=== PATIENT | female | born 1980 | race African-American/Black ===

== ENCOUNTER 2016-10-04 12:19 | Emergency (ER) | payer OTHER ==
[2016-10-04] MEDS ORDERED: Azithromycin TAB* 250 MG PO ONE (20:43)
[2016-10-04] MEDS ORDERED: Raltegravir* 400 MG TAB PO ONE ×2 (20:43→23:00)
[2016-10-04] MEDS ORDERED: Ibuprofen TAB* 600 MG PO ONE (20:43)
[2016-10-04] MEDS ORDERED: Tetan/Diph/Pertus SYR(Tdap)* 0.5 ML SYR(BOOSTRIX) use SYR IM ONE (20:43)
[2016-10-04] MEDS ORDERED: cefTRIAXone VIAL(*) 250 MG VIAL IM ONE (20:43)
[2016-10-04] MEDS ORDERED: Tenofovir/Emtricitabine(*) TAB PO ONE ×2 (20:43→23:00)
[2016-10-04] MEDS ORDERED: Hepatitis B Vaccine (ADULT)* 2 X 0.5 ML VIALS IM ONE (20:46)
[2016-10-04 21:03] LABS: Hematocrit 36 % (35-47); Hemoglobin 10.8 g/dl (12.0-16.0); Mean Corpuscular HGB Conc 31 g/dl (31-36); Mean Corpuscular Hemoglobin 21 pg (27-31); Mean Corpuscular Volume 69 fL (80-97); Mean Platelet Volume 9 um3 (7.4-10.4); Red Blood Count 5.18 10^6/ul (4.0-5.4); Red Cell Distribution Width 15 % (10.5-15); White Blood Count 5.7 10^3/ul (3.5-10.8)
[2016-10-04 21:04] LABS: Add Diff/Slide Review? Slide Review Added; Comments Flag Yes
[2016-10-04 21:06] LABS: Urine Bilirubin Negative (Negative); Urine Glucose Negative (Negative); Urine Nitrite Negative (Negative)
[2016-10-04 21:18] LABS: Albumin 3.9 g/dL (3.2-5.2); Calcium 9.2 mg/dL (8.6-10.3); EGFR African American 72.6 (>60); EGFR Non-African American 56.5 (>60); Globulin 3.3 g/dL (2-4); Total Bilirubin 0.4 mg/dL (0.2-1.0); Total Protein 7.2 g/dL (6.4-8.9)
[2016-10-04] MEDS ORDERED: Norgestrel/Ethinyl Estrad TAB* 0.5 MG/0.05 MG PO ONE (21:31)
[2016-10-04 21:45] LABS: UR Preg Internal Control QC Line Present
[2016-10-04 21:57] LABS: Microcytosis 2+
[2016-10-04] MEDS ORDERED: Ondansetron ODT TAB* 4 MG PO ONE (21:58)
[2016-10-04 22:00] LABS: Rapid HIV INT CONT QC Line Present; Rapid HIV Kit Lot# F209005
[2016-10-04] MEDS ORDERED: Lidocaine 1% INJ* 10 MG/ML 30 ML SDV ONE (22:30)
[2016-10-04 23:37] VITALS: BP 150/92
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
== END 2016-10-04 23:35 | disposition home or self-care (01) ==
LOC: ED 12:19
DX: T76.21XA Adult sexual abuse, suspected, initial encounter (principal)
CPT/HCPCS: 36415; 80053; 81003; 81025; 85025; 86703; 86706; 86803; 87340; 90471; 90715; 96372; 99284; A9270-GY; J0696; J2001

== ENCOUNTER 2017-01-27 09:30 | Emergency (ER) | payer BC ==
[2017-01-27 09:39] VITALS: BP 138/79
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
== END 2017-01-27 10:27 | disposition home or self-care (01) ==
LOC: UCEAST 09:30
DX: H66.91 Otitis media, unspecified, right ear (principal); J02.9 Acute pharyngitis, unspecified; F17.210 Nicotine dependence, cigarettes, uncomplicated
CPT/HCPCS: 87651; 99212; G0463

== ENCOUNTER 2017-03-09 10:30 | Emergency (ER) | payer BC, MEDICAID ==
[2017-03-09 10:49] VITALS: BP 142/99
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
== END 2017-03-09 11:47 | disposition home or self-care (01) ==
LOC: UCEAST 10:30
DX: T65.91XA Toxic effect of unspecified substance, accidental (unintentional), initial encounter (principal); T20.47XA Corrosion of unspecified degree of neck, initial encounter; T32.0 Corrosions involving less than 10% of body surface; Y92.9 Unspecified place or not applicable; F17.210 Nicotine dependence, cigarettes, uncomplicated; Z88.0 Allergy status to penicillin
CPT/HCPCS: 99212; G0463

== ENCOUNTER 2017-03-28 12:52 | Emergency (ER) | payer MEDICAID ==
--- NOTE | 2017-03-28 14:39 | UC ---
Skin Complaint HPI - HPI Summary HPI Summary: Patient presents to be checked out because her sister has bed bugs and she was over there. She report to bite almonte to her skin. She also report an infected hang nail of the right thumb. She states it is painful, and has been bleeding. - History of Current Complaint Chief Complaint: UCSkin Time Seen by Provider: 03/28/17 14:26 Stated Complaint: PERSONAL Hx Obtained From: Patient Hx Last Menstrual Period: 03/21/17 ?: No Onset/Duration: Gradual Onset, Lasting Days Skin Exposure Onset/Duration: Days Ago Onset Severity: Moderate Current Severity: Moderate - Allergy/Home Medications Allergies/Adverse Reactions: Allergies Allergy/AdvReac Type Severity Reaction Status Date / Time Penicillins [PCN] Allergy Unknown Unknown Verified 03/28/17 13:15 Reaction Details Review of Systems Constitutional: Negative Skin: Negative - right thumb pain and bleeding of the right lateral and proximal nail., Other Eyes: Negative ENT: Negative Respiratory: Negative Cardiovascular: Negative Gastrointestinal: Negative Genitourinary: Negative Musculoskeletal: Negative All Other Systems Reviewed And Are Negative: Yes PMH/Surg Hx/FS Hx/Imm Hx Previously Healthy: Yes - Surgical History Surgical History: None - Family History Known Family History: Positive: None, Cardiac Disease, Respiratory Disease Family History: R & n/C - Social History Occupation: Unemployed Lives: Alone Alcohol Use: None Substance Use Type: None Substance Use Comment - Amount & Last Used: in past, but states not currently Smoking Status (MU): Heavy Every Day Tobacco Smoker Type: Cigarettes Amount Used/How Often: 1/2 ppd Length of Time of Smoking/Using Tobacco: since age 23 Have You Smoked in the Last Year: Yes Household Exposure Type: Cigarettes Physical Exam Triage Information Reviewed: Yes Appearance: Well-Appearing Vital Signs: Initial Vital Signs Temp 98 F 03/28/17 13:15 Pulse 89 03/28/17 13:15 Resp 18 03/28/17 13:15 Pulse Ox 100 03/28/17 13:15 Vital Signs Reviewed: Yes Eye Exam: Normal ENT Exam: Normal Neck exam: Normal Respiratory Exam: Normal Cardiovascular Exam: Normal Abdominal Exam: Normal Musculoskeletal Exam: Normal Psychological Exam: Normal Skin Exam: Other - right thumb has skin missing of the lateral and proximal nail , no active bleeding, no flucuance. Course/Dx - Course Course Of Treatment: Patient presents because her sister has bed bugs and she was over there, I see no evidence of any insect bites today.I did recommend she clean and bomb the apartment. She also has an infected hang nail and we cleaned and dressed it here. She was given an RX for Keflex 500 mg by mouth four times daily x 10 days. Told to follow up with pcp in two days. - Differential Diagnoses - Skin Complaint Differential Diagnoses: Cellulitis, Other - infected hang nail - Diagnoses Provider Diagnoses: infected hand nail. cellulitis Discharge - Discharge Plan Condition: Stable Disposition: HOME Prescriptions: Cephalexin CAP* [Keflex CAP*] 500 mg PO QID #40 cap Patient Education Materials: Cellulitis (ED) Referrals: No Primary Care Phys,NOPCP [Primary Care Provider] -
== END 2017-03-28 14:48 | disposition home or self-care (01) ==
LOC: UCEAST 12:52
DX: L03.011 Cellulitis of right finger (principal)
CPT/HCPCS: 99212; G0463

== ENCOUNTER 2017-07-05 15:54 | Emergency (ER) | payer MEDICAID ==
[2017-07-05 16:02] VITALS: BP 137/85
[2017-07-05] MEDS ORDERED: NS 0.9% 1000 ML* 2,000 ML IV ONE (16:47)
--- NOTE | 2017-07-05 16:54 | UC ---
General HPI - HPI Summary HPI Summary: 37yo BF c/o sx dizziness while at work today after drinking "alot of alcohol for her birthday" over new years for at least 2 days and feels lightheaded, dehydrated and tired. Pt's boss at [employer] noticed while at work that pt was "unsteady on her feet" and sent her home. Pt has been trying to drink alot of water to recover but feels like she is still trying to catch up. Denies f/c and but has a mild cough. - History of Current Complaint Chief Complaint: UCHeadache Stated Complaint: DIZZINESS Time Seen by Provider: 07/05/17 16:38 Hx Obtained From: Patient Hx From Patient Unobtainable Due To: Other Hx Last Menstrual Period: 06/03/17 Onset/Duration: Sudden Onset Onset Severity: Severe Current Severity: Moderate - Allergy/Home Medications Allergies/Adverse Reactions: Allergies Allergy/AdvReac Type Severity Reaction Status Date / Time Penicillins [PCN] Allergy Unknown Unknown Verified 07/05/17 16:02 Reaction Details Home Medications: Home Medications NK [No Home Medications Reported] 07/05/17 [History Confirmed 07/05/17] PMH/Surg Hx/FS Hx/Imm Hx Previously Healthy: Yes - Surgical History Surgical History: None - Family History Known Family History: Positive: None, Cardiac Disease, Respiratory Disease Family History: R & n/C - Social History Alcohol Use: None Substance Use Type: Marijuana Substance Use Comment - Amount & Last Used: in past, but states not currently Smoking Status (MU): Heavy Every Day Tobacco Smoker Type: Cigarettes Amount Used/How Often: 1/2 ppd Length of Time of Smoking/Using Tobacco: since age 23 Have You Smoked in the Last Year: Yes Household Exposure Type: Cigarettes Review of Systems Constitutional: Fatigue - from binge drinking Skin: Negative Eyes: Negative ENT: Negative Respiratory: Negative Cardiovascular: Negative Gastrointestinal: Negative Genitourinary: Negative Motor: Negative Neurovascular: Other - intermittent HANSEN and dizziness, NO LOC Musculoskeletal: Negative Neurological: Headache Psychological: Negative All Other Systems Reviewed And Are Negative: Yes Physical Exam Triage Information Reviewed: Yes Appearance: No Pain Distress Vital Signs: Initial Vital Signs Temp 36.8 C 07/05/17 15:58 Pulse 97 07/05/17 15:58 Resp 20 07/05/17 15:58 BP 137/85 07/05/17 15:58 Pulse Ox 100 07/05/17 15:58 Eye Exam: Normal ENT Exam: Other - DRY mucous menbranes andchapped lips Dental Exam: Normal Neck exam: Normal Neck: Positive: 1 Respiratory Exam: Normal Respiratory: Positive: Lungs clear Cardiovascular: Positive: Tachycardia - pulse is 97 Abdominal Exam: Normal Abdomen Description: Positive: Nontender Musculoskeletal Exam: Normal Neurological Exam: Normal Psychological Exam: Normal Skin Exam: Normal Course/Dx - Course Course Of Treatment: Ordered 2L of NS and administered 1L of NS for post ETOH binge drinking dehydration becuse pt refused 2nd bag of IVF due to pt requesting to go home for family emergency/. Advised to continue PO hydration after d/c as it sita help with dizziness and HANSEN. No signs of neurologic deficiencies noted pre and post IVF adminsitration. - Differential Dx - Multi-Symptom Provider Diagnoses: Dehydration Discharge - Discharge Plan Condition: Stable Disposition: HOME Referrals: No Primary Care Phys,NOPCP [Primary Care Provider] -
[2017-07-05] MEDS ORDERED: NS 0.9% 1000 ML* 1,000 ML IV ONE (17:37)
== END 2017-07-05 18:29 | disposition home or self-care (01) ==
LOC: UCEAST 15:54
DX: E86.0 Dehydration (principal); F17.210 Nicotine dependence, cigarettes, uncomplicated; Z88.0 Allergy status to penicillin
CPT/HCPCS: 96360; 99211; G0463

== ENCOUNTER 2018-01-02 20:25 | Emergency (ER) | payer BC, MEDICAID ==
[2018-01-02 20:39] VITALS: BP 131/87
[2018-01-02] MEDS ORDERED: Clindamycin CAP* 150 MG PO ONE ×2 (21:05→21:07)
[2018-01-02] MEDS ORDERED: HYDROcodone/ACETAMIN 5-325 MG* 1 TAB PO ONE ×2 (21:06→21:07)
--- NOTE | 2018-01-02 21:54 | UC ---
Pam Sal Emily, scribed for Ezio Dumont MD on 01/02/18 at 2103 . Dental HPI - HPI Summary HPI Summary: This patient is a 37 year old F presenting to [facility] care with a chief complaint of upper left toothache that began 12/26/2017. The patient rates the pain 7/10 in severity. Symptoms aggravated by nothing. Symptoms alleviated by nothing. Patient reports cough, sore throat, vomiting, near syncope, and dizziness. Patient denies CP and hematochezia. Patient reports she has been working more than usual lately. Allergies reviewed. Medications reviewed. - History of Current Complaint Chief Complaint: UCDentalProblem Stated Complaint: TOOTH ACHE Time Seen by Provider: 01/02/18 20:55 Hx Obtained From: Patient Hx Last Menstrual Period: [id number] ?: No Onset/Duration: Sudden Onset, Lasting Weeks, Still Present Severity: Moderate Pain Intensity: 7 Pain Scale Used: 0-10 Numeric Aggravating Factor(s): Nothing Alleviating Factor(s): Nothing - Allergies/Home Medications Allergies/Adverse Reactions: Allergies Allergy/AdvReac Type Severity Reaction Status Date / Time Penicillins Allergy Unknown Verified 01/02/18 20:40 Reaction Details Home Medications: Home Medications Ibuprofen TAB* [Motrin TAB* 800 MG] 800 mg PO Q6H PRN 01/02/18 [History Confirmed 01/02/18] PMH/Surg Hx/FS Hx/Imm Hx Previously Healthy: No Respiratory History: Asthma Neurological History: Seizures - Surgical History Surgical History: None - Family History Known Family History: Positive: Cardiac Disease, Respiratory Disease - Social History Occupation: Employed Full-time Lives: With Family Alcohol Use: Weekly Substance Use Type: Marijuana Substance Use Comment - Amount & Last Used: weekly Smoking Status (MU): Light Every Day Tobacco Smoker Type: Cigarettes Amount Used/How Often: 1/2 ppd Length of Time of Smoking/Using Tobacco: since age 23 Have You Smoked in the Last Year: Yes Household Exposure Type: Cigarettes Review of Systems ENT: Dental Pain, Sore Throat Respiratory: Cough Cardiovascular: Other - Negative CP Gastrointestinal: Vomiting, Other - Negative hematochezia Neurological: Other - Positive near syncope and dizziness All Other Systems Reviewed And Are Negative: Yes Physical Exam - Summary Physical Exam Summary: General: well-appearing, no pain distress Skin: warm, color reflects adequate perfusion, dry Head: normal Eyes: EOMI, EMANUEL ENT: normal Dental: Left upper molar severe decay with surrounding gingival swelling Neck: supple, nontender Respiratory: CTA, breath sounds present Cardiovascular: RRR Abdomen: soft, nontender Bowel: present Musculoskeletal: normal, strength/ROM intact Neurological: sensory/motor intact, A&O x3 Psychological: affect/mood appropriate Triage Information Reviewed: Yes Vital Signs: Initial Vital Signs Temp 99.0 F 01/02/18 20:28 Pulse 88 01/02/18 20:28 Resp 16 01/02/18 20:28 BP 131/87 01/02/18 20:28 Pulse Ox 100 01/02/18 20:28 Vital Signs Reviewed: Yes Dental Complaint Course/Dx - Course Course Of Treatment: PATIENT REPORTS SHE BELIEVES HER NEAR SYNCOPE/DIZZINESS IS DUE TO WORKING A LOT AND HER DENTAL INFECTION. DENIES CHEST PAIN/SOB. I DISCUSSED FURTHER WORKUP TO INCLUDE AN EKG AND LAB WORK; THE PATIENT DECLINED FURTHER WORKUP. F/U PMD/DENTIST; RE CHECK SOONER IF WORSE. - Differential Dx/Diagnosis Provider Diagnoses: DENTAL INFECTION. NEAR SYNCOPE. DIZZINESS Discharge - Sign-Out/Discharge Documenting (check all that apply): Discharge/Admit/Transfer - Discharge Plan Condition: Stable Disposition: HOME Prescriptions: Clindamycin Cap(NF) [Clindamycin Cap 300 mg Cap(NF)] 300 mg PO Q6H #38 cap HYDROcodone/ACETAMIN 5-325 MG* [[place] 5-325 TAB*] 1 tab PO Q4H PRN #20 tab MDD 6 PRN Reason: Pain Patient Education Materials: Near Syncope (ED), Dizziness (ED), Toothache (ED) Forms: *Work Release Referrals: [facility] [place] PHYSICIAN REFERRAL [Outside] Additional Instructions: FOLLOW UP WITH YOUR DENTIST AND PRIMARY CARE DOCTOR. GET RECHECKED FOR ANY WORSENING OF YOUR CONDITION; CHEST PAIN, PALPITATIONS, SHORTNESS OF BREATH, FEVER, YOU FEEL ILL OR QUESTIONS OR CONCERNS. - Billing Disposition and Condition Condition: STABLE Disposition: Home The documentation as recorded by the Pam mcleod Emily accurately reflects the service I personally performed and the decisions made by me, Ezoi Dumont MD.
== END 2018-01-02 21:28 | disposition home or self-care (01) ==
LOC: UCEAST 20:25
DX: K04.7 Periapical abscess without sinus (principal); R42 Dizziness and giddiness; R55 Syncope and collapse; Z88.0 Allergy status to penicillin; F17.210 Nicotine dependence, cigarettes, uncomplicated; J45.909 Unspecified asthma, uncomplicated; Z86.69 Personal history of other diseases of the nervous system and sense organs
CPT/HCPCS: 99213; A9270-GY; G0463

== ENCOUNTER 2018-10-28 16:07 | Emergency (ER) | payer SELFPAY ==
[2018-10-28 16:16] VITALS: BP 132/93
--- NOTE | 2018-10-28 16:28 | UC ---
FLU HPI - HPI Summary HPI Summary: patient reports feeling well yesterday until after lunch when she suddenly started feeling fatigued, achey and had fever. today symps persist - History of Current Complaint Chief Complaint: UCGeneralIllness Stated Complaint: DIZZY,FEVER Time Seen by Provider: 10/28/18 16:18 Hx Obtained From: Patient Hx Last Menstrual Period: states 2 weeks ago, unknown date ?: No Onset/Duration: Sudden Onset Severity Initially: Moderate Pain Intensity: 4 - Allergy/Home Medications Allergies/Adverse Reactions: Allergies Allergy/AdvReac Type Severity Reaction Status Date / Time Penicillins Allergy Unknown Verified 10/28/18 16:17 Reaction Details Home Medications: Home Medications Buprenorp/Nalox 8-2 MG FILM [Suboxone 8 mg-2 mg Sl Film] 1 each SL TID 10/28/18 [History Confirmed 10/28/18] Gabapentin 300 mg PO TID 10/28/18 [History Confirmed 10/28/18] PMH/Surg Hx/FS Hx/Imm Hx Previously Healthy: Yes - Surgical History Surgical History: None - Family History Known Family History: Positive: None, Cardiac Disease, Respiratory Disease Family History: R & n/C - Social History Occupation: Employed Full-time Lives: With Family Alcohol Use: Occasionally Substance Use Type: Cocaine Substance Use Comment - Amount & Last Used: occasional Smoking Status (MU): Light Every Day Tobacco Smoker Type: Cigarettes Amount Used/How Often: 1 pk/3 days Length of Time of Smoking/Using Tobacco: since age 23 Have You Smoked in the Last Year: Yes Household Exposure Type: Cigarettes Cessation Counseling: Patient Advised to Stop Review of Systems All Other Systems Reviewed And Are Negative: Yes Constitutional: Positive: Fever, Fatigue Skin: Positive: Negative. Negative: Rash ENT: Negative: Sore Throat, Sinus Congestion Respiratory: Positive: Negative. Negative: Cough Cardiovascular: Positive: Negative Neurological: Positive: Negative Psychological: Positive: Negative Is Patient Immunocompromised?: No Physical Exam Triage Information Reviewed: Yes Appearance: Well-Appearing, No Pain Distress, Well-Nourished Vital Signs: Initial Vital Signs Temp 97.8 F 10/28/18 16:12 Pulse 88 10/28/18 16:12 Resp 16 10/28/18 16:12 BP 132/93 10/28/18 16:12 Pulse Ox 99 10/28/18 16:12 Vital Signs Reviewed: Yes Eyes: Positive: Conjunctiva Clear ENT: Positive: Pharynx normal, TMs normal. Negative: Sinus tenderness Neck: Positive: Supple, No Lymphadenopathy Respiratory Exam: Normal Respiratory: Positive: Lungs clear Cardiovascular Exam: Normal Cardiovascular: Positive: RRR Musculoskeletal Exam: Normal Musculoskeletal: Positive: Strength Intact Neurological Exam: Normal Neurological: Positive: Alert Psychological Exam: Normal Skin Exam: Normal Skin: Negative: Rashes Flu Course/Dx - Differential Dx/Diagnosis Differential Diagnosis/HQI/PQRI: Upper Respiratory Infection Provider Diagnosis: Upper respiratory infection Discharge - Sign-Out/Discharge Documenting (check all that apply): Patient Departure All imaging exams completed and their final reports reviewed: No Studies - Discharge Plan Condition: Good Disposition: HOME Patient Education Materials: Upper Respiratory Infection (ED) Referrals: No Primary Care Phys,NOPCP [Primary Care Provider] - Additional Instructions: drink plenty of fluids and rest use over the counter Tylenol as directed for pain and fever report to ER if your symptoms worsen at any time - Billing Disposition and Condition Condition: GOOD Disposition: Home
[2018-10-28 16:47] LABS: Influenza A Molecular NEGATIVE (Negative); Influenza B Molecular NEGATIVE (Negative)
== END 2018-10-28 17:00 | disposition home or self-care (01) ==
LOC: UCEAST 16:07
DX: J06.9 Acute upper respiratory infection, unspecified (principal); Z88.0 Allergy status to penicillin; F17.210 Nicotine dependence, cigarettes, uncomplicated
CPT/HCPCS: 99211; G0463

== ENCOUNTER 2019-01-17 19:39 | Emergency (ER) | payer OTHER ==
[2019-01-17] MEDS ORDERED: Tetracaine 0.5% OPTH.SOL 4 ML* 1 DROP BTL SCH (20:30)
--- NOTE | 2019-01-17 20:56 | ED ---
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 Denies actual bleach in eyes. Denies any other pain injury or symptoms. Denies contact lenses. - History of Current Complaint Chief Complaint: EDEyeProblem Time Seen by Provider: 01/17/19 20:16 Hx Obtained From: Patient Onset/Duration: Gradual Onset, Lasting Hours Severity: Moderate Associated Signs And Symptoms: Positive: Negative Cough: None - Allergies/Home Medications Allergies/Adverse Reactions: Allergies Allergy/AdvReac Type Severity Reaction Status Date / Time Penicillins Allergy Unknown Verified 01/17/19 19:47 Reaction Details PMH/Surg Hx/FS Hx/Imm Hx Endocrine/Hematology History: Denies: Hx Diabetes, Hx Thyroid Disease Cardiovascular History: Denies: Hx Hypertension Respiratory History: Reports: Hx Asthma Denies: Hx Chronic Obstructive Pulmonary Disease (COPD) GI History: Denies: Hx Ulcer History: Denies: Hx Dialysis Sensory History: Denies: Hx Eye Prosthesis Opthamlomology History: Denies: Hx Legally Blind Neurological History: Denies: Hx Dementia Infectious Disease History: No Infectious Disease History: Denies: Hx Clostridium Difficile, Hx Hepatitis, Hx Human Immunodeficiency Virus (HIV), Hx of Known/Suspected MRSA, Hx Shingles, Hx Tuberculosis, Hx Known/ Suspected VRE, Hx Known/Suspected VRSA, History Other Infectious Disease, Traveled Outside the [place] in Last 30 Days - Family History Known Family History: Positive: None, Cardiac Disease, Respiratory Disease Family History: R & n/C - Social History Alcohol Use: Occasionally Hx Substance Use: Yes Substance Use Type: Reports: None Substance Use Comment - Amount & Last Used: occasional Hx Tobacco Use: Yes Smoking Status (MU): Light Every Day Tobacco Smoker Type: Cigarettes Amount Used/How Often: 1 pk/3 days Length of Time of Smoking/Using Tobacco: since age 23 Have You Smoked in the Last Year: Yes Review of Systems Constitutional: Negative Positive: Blurred Vision ENT: Negative Cardiovascular: Negative - data the Respiratory: Negative Gastrointestinal: Negative Genitourinary: Negative Musculoskeletal: Negative Skin: Negative Neurological: Negative Psychological: Normal All Other Systems Reviewed And Are Negative: Yes Physical Exam - Summary Physical Exam Summary: EOMI. PERRLA. No obvious signs of injury to eyes. Triage Information Reviewed: Yes Vital Signs On Initial Exam: Initial Vitals Temp Pulse Resp BP Pulse Ox 97.8 F 75 16 114/86 99 01/17/19 19:41 01/17/19 19:41 01/17/19 19:41 01/17/19 19:41 01/17/19 19:41 Vital Signs Reviewed: Yes Appearance: Positive: Well-Appearing Skin: Positive: Warm Head/Face: Positive: Normal Head/Face Inspection Eyes: Positive: Normal ENT: Positive: Normal ENT inspection Neck: Positive: Supple Respiratory/Lung Sounds: Positive: Clear to Auscultation Cardiovascular: Positive: Normal Abdomen Description: Positive: Nontender Musculoskeletal: Positive: Normal Neurological: Positive: Normal Psychiatric: Positive: Normal AVPU Assessment: Alert - [place] Coma Scale Best Eye Response: 4 - Spontaneous Best Motor Response: 6 - Obeys Commands Best Verbal Response: 5 - Oriented Coma Scale Total: 15 Diagnostics - Vital Signs Vital Signs Temp Pulse Resp BP Pulse Ox 01/17/19 19:41 97.8 F 75 16 114/86 99 - Laboratory Lab Statement: Any lab studies that have been ordered have been reviewed, and results considered in the medical decision making process. 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 Denies actual bleach in eyes. Denies any other pain injury or symptoms. Denies contact lenses. Vital signs within normal limits. Bilateral eyes flushed with 100ml normal saline. Patient refused to continue having eyes flushed. Patient states vision has returned to normal. Return for any new or worsening symptoms. Advised patient follow-up with ophthalmology Dr. Swanson. Patient understands and approves of plan. - Diagnoses Provider Diagnoses: Accidental exposure to bleach Discharge - Sign-Out/Discharge Documenting (check all that apply): Patient Departure Patient Received Moderate/Deep Sedation with Procedure: No - Discharge Plan Condition: Stable Disposition: HOME Patient Education Materials: Eye Pain (ED) Referrals: No Primary Care Phys,NOPCP [Primary Care Provider] - Martín Swanson MD [Medical Doctor] - Additional Instructions: If you experience any vision change or eye pain follow-up with ophthalmology Dr. Swanson or return to the ED or for further evaluation. - Billing Disposition and Condition Condition: STABLE Disposition: Home
[2019-01-17 21:13] VITALS: BP 127/89
== END 2019-01-17 21:12 | disposition home or self-care (01) ==
LOC: ED 19:39
DX: Z77.098 Contact with and (suspected) exposure to other hazardous, chiefly nonmedicinal, chemicals (principal); H53.8 Other visual disturbances; H57.89 Other specified disorders of eye and adnexa; Z88.0 Allergy status to penicillin; F17.210 Nicotine dependence, cigarettes, uncomplicated
CPT/HCPCS: 99282; A9270-GY

== ENCOUNTER 2019-04-29 18:43 | Emergency (ER) | payer OTHER ==
[2019-04-29 18:55] VITALS: BP 116/49
--- NOTE | 2019-04-29 19:03 | UC ---
Dental HPI - HPI Summary HPI Summary: c/o dizziness at work today that resolved when she sat down and relaxed--- patient has dental abscess right lower broken tooth--- - History of Current Complaint Chief Complaint: UCDentalProblem Stated Complaint: DENTAL PAIN, NAUSEA, DIZZY Time Seen by Provider: 04/29/19 19:02 Hx Obtained From: Patient Hx Last Menstrual Period: 04/28/19 ?: No Onset/Duration: Gradual Onset, Lasting Days Pain Intensity: 6 Pain Scale Used: 0-10 Numeric Related History: Previous Dental Care on Same Tooth, Discharge - Allergies/Home Medications Allergies/Adverse Reactions: Allergies Allergy/AdvReac Type Severity Reaction Status Date / Time Penicillins Allergy Unknown Verified 04/29/19 18:55 Reaction Details Home Medications: Home Medications Ibuprofen 600 mg PO ONCE PRN 04/29/19 [History Confirmed 04/29/19] PMH/Surg Hx/FS Hx/Imm Hx Previously Healthy: No Other Psychological History: BETHANIE on maintence therapy - Surgical History Surgical History: Yes Surgery Procedure, Year, and Place: BRAIN BIOPSY - EXTRENAL CLIPS ON SKULL - SEEN ON CT OF BRAIN 2013. C SECTION - 01/03/13 - Family History Known Family History: Positive: None, Cardiac Disease, Respiratory Disease Family History: R & n/C - Social History Occupation: Employed Part-time Lives: With Family Alcohol Use: None Substance Use Type: None Substance Use Comment - Amount & Last Used: hx of cocaine, mJ, and alcohol Smoking Status (MU): Light Every Day Tobacco Smoker Type: Cigarettes Amount Used/How Often: she is trying to quit, 1 ppweek Length of Time of Smoking/Using Tobacco: since age 23 Have You Smoked in the Last Year: Yes Household Exposure Type: Cigarettes Review of Systems All Other Systems Reviewed And Are Negative: Yes Constitutional: Positive: Negative Skin: Positive: Negative Eyes: Positive: Negative ENT: Positive: Dental Pain - right lower---poor po intake past few days due to pain Respiratory: Positive: Negative Cardiovascular: Positive: Negative Gastrointestinal: Positive: Negative Genitourinary: Positive: Negative Motor: Positive: Negative Neurovascular: Positive: Negative Musculoskeletal: Positive: Negative Neurological: Positive: Negative Psychological: Positive: Negative Is Patient Immunocompromised?: No Physical Exam Triage Information Reviewed: Yes Appearance: Well-Appearing, No Pain Distress, Well-Nourished Vital Signs: Initial Vital Signs Temp 98.7 F 04/29/19 18:49 Pulse 70 04/29/19 18:49 Resp 18 04/29/19 18:49 BP 116/49 04/29/19 18:49 Pulse Ox 99 04/29/19 18:49 Vital Signs Reviewed: Yes Eye Exam: Normal Eyes: Positive: Conjunctiva Clear ENT Exam: Normal ENT: Positive: Normal ENT inspection, Hearing grossly normal. Negative: Trismus , Muffled voice, Hoarse voice Dental Exam: Other Dental: Positive: Gross Decay/Caries @, Abscess @ Neck exam: Normal Neck: Positive: Supple, Nontender Respiratory: Positive: Chest non-tender, No respiratory distress, No accessory muscle use Cardiovascular Exam: Normal Cardiovascular: Positive: RRR, Pulses Normal, Brisk Capillary Refill Musculoskeletal Exam: Normal Musculoskeletal: Positive: Strength Intact, ROM Intact, No Edema Neurological Exam: Normal Neurological: Positive: Alert, Muscle Tone Normal Psychological Exam: Normal Skin Exam: Normal Dental Complaint Course/Dx - Course Course Of Treatment: continue suboxone, ibuprofen for pain clindamycin---follow with dentist and reach clinic - Differential Dx/Diagnosis Provider Diagnosis: Dental caries into pulp Discharge ED - Sign-Out/Discharge Documenting (check all that apply): Patient Departure All imaging exams completed and their final reports reviewed: No Studies - Discharge Plan Condition: Stable Disposition: HOME Prescriptions: Clindamycin Cap(NF) [Clindamycin Cap 300 mg Cap(NF)] 300 mg PO Q6H #40 cap Patient Education Materials: Dental Abscess (ED) Forms: *Work Release Referrals: Vanessa Otero MD [Primary Care Provider] - 2 Days - Billing Disposition and Condition Condition: STABLE Disposition: Home - Attestation Statements Provider Attestation: Per institutional requirements, I have reviewed the chart, however, I was not consulted specifically or made aware of this patient by the midlevel provider. I did not personally evaluate, interact with , or disposition this patient.
[2019-04-29] MEDS ORDERED: Clindamycin CAP* 150 MG PO ONE (19:09)
== END 2019-04-29 19:26 | disposition home or self-care (01) ==
LOC: UCEAST 18:43
DX: K02.9 Dental caries, unspecified (principal); F17.210 Nicotine dependence, cigarettes, uncomplicated; R11.0 Nausea; R42 Dizziness and giddiness; Z88.0 Allergy status to penicillin
CPT/HCPCS: 99212; A9270-GY; G0463